=== PATIENT | male | born 1980 | race Two or more races ===

== ENCOUNTER 2017-05-17 15:22 | Emergency (ER) | payer SELFPAY ==
[~2017-05-17] VITALS: Ht 177.8 cm; Wt 141.6 kg
[~2017-05-17 15:22] MED LIST: ALLO100T30 PO; CIPR500T87 PO; HYDR-3237 PO; INDO25CA PO; METR500T PO
[2017-05-17 16:22] LABS: HEMATOCRIT 48.6 % (39.2-51.8); HEMOGLOBIN 16.4 g/dL (13.7-18.0); WHITE BLOOD COUNT 13.5 x10^3/uL (3.4-10)
[2017-05-17] MEDS ORDERED: ASPIRIN 81 MG TABLET CHEW PO ONE (16:30)
[2017-05-17] MEDS ORDERED: SODIUM CHLORIDE FLUSH 10ML SYR IVF ONE (16:30)
[2017-05-17 16:34] LABS: BLOOD UREA NITROGEN 12 mg/dL (7-18)
[2017-05-17 16:41] LABS: ASPARTATE AMINO TRANSFERASE 40 U/L (15-37); IS PT STATUS REG ER OR PRE ER? YES
[2017-05-17] MEDS ORDERED: ASPIRIN 81 MG TABLET CHEW ONE (16:59)
[2017-05-17 18:21] VITALS: BP 124/86
== END 2017-05-17 18:53 | disposition home or self-care (01) ==
LOC: ED 17:57
DX: R07.89 Other chest pain (principal); M94.0 Chondrocostal junction syndrome [Tietze]; F17.200 Nicotine dependence, unspecified, uncomplicated; J45.909 Unspecified asthma, uncomplicated; D72.829 Elevated white blood cell count, unspecified
CPT/HCPCS: 36415; 71010; 80053; 84484; 85025; 85379; 93005; 99285